=== PATIENT | male | born 2005 | race Caucasian/White ===

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

== ENCOUNTER 2025-03-30 07:52 | Emergency (ER) | payer OTHER ==
[2025-03-30 08:00] VITALS: BMI 26.4
[2025-03-30] MEDS ORDERED: LIDOCAINE HCL 1%, 10 MG/ML (20ML VIAL) ONE (08:28)
[2025-03-30] MEDS ORDERED: IBUPROFEN 600 MG TABLET (FP) PO ONE (08:29)
[2025-03-30] MEDS ORDERED: LIDOCAINE 2.5%/PRILOCAINE 2.5% (5 Gram/TUBE) TP ONE (08:37)
[2025-03-30] MEDS: IBUPROFEN 600 MG TABLET (FP) PO ONE (08:39)
[2025-03-30] MEDS: LIDOCAINE HCL 1%, 10 MG/ML (50 mL VIAL) SQ ONE (08:39)
[2025-03-30] MEDS: LIDOCAINE 2.5%/PRILOCAINE 2.5% (5 Gram/TUBE) TP ONE (08:39)
[2025-03-30 09:44] VITALS: BP 119/54; PULSE 82; RESP 20; TEMP 98
== END 2025-03-30 09:55 | disposition home or self-care (01) ==
LOC: JER 07:52
PROC: 0H90XZZ Drainage of Scalp Skin, External Approach (ICD-10-PCS; principal; 2025-03-30)
DX: L73.9 Follicular disorder, unspecified (principal); R50.9 Fever, unspecified; R51.9 Headache, unspecified; R00.0 Tachycardia, unspecified
CPT/HCPCS: 87070; 87205; 99283-25